=== PATIENT | male | born 1985 | race African-American/Black ===

== ENCOUNTER 2017-09-05 11:00 | Emergency (ER) | payer SELFPAY ==
[~2017-09-05] VITALS: Ht 182.9 cm; Wt 68.0 kg
[2017-09-05] MEDS ORDERED: IPRATRPIUM/ALBUTEROL 0.5/2.5MG 3 ML NEBU. NEB ONE (11:15)
[2017-09-05] MEDS ORDERED: ALBUTEROL SULFATE 2.5 MG/3 ML NEBU. NEB ONE (12:00)
[2017-09-05] MEDS ORDERED: predniSONE 10 MG TABLET PO ONE (12:00)
--- NOTE | 2017-09-05 12:25 | PHYS DOC ---
Past Medical History Past Medical History: Asthma, Bipolar Past Surgical History: No Surgical History Alcohol Use: None Drug Use: Marijuana Adult General Chief Complaint Chief Complaint: ASTHMA HPI HPI Patient is a 32 year old male who presents with cough, wheezing, shortness of breath. Patient with history of asthma, states he hasn't had using an inhaler for greater than a year presents with a few days of runny nose and cough, no fevers. No associated pain, he did not attempt any medications as he does not have any. No primary care physician. Review of Systems Review of Systems Constitutional: Denies fever or chills [] Eyes: Denies change in visual acuity, redness, or eye pain [] HENT: per history of present illness Respiratory: Per history of present illness Cardiovascular: Denies chest pain GI: Denies abdominal pain, nausea, vomiting, bloody stools or diarrhea [] : Denies dysuria or hematuria [] Musculoskeletal: Denies back pain or joint pain [] Integument: Denies rash or skin lesions [] Neurologic: Denies headache, focal weakness or sensory changes [] Current Medications Current Medications Current Medications Medications (Trade) Dose Ordered Sig/Wilian Start Time Stop Time Status Last Admin Dose Admin Albuterol Sulfate (Ventolin Neb Soln) 2.5 mg 1X ONCE 09/05/17 12:00 09/05/17 12:01 DC 09/05/17 12:09 2.5 MG Albuterol/ Ipratropium (Duoneb) 3 ml 1X ONCE 09/05/17 11:15 09/05/17 11:16 DC 09/05/17 12:10 3 ML Prednisone (Prednisone) 50 mg 1X ONCE 09/05/17 12:00 09/05/17 12:01 DC 09/05/17 12:16 50 MG Allergies Allergies Allergies Uncoded Allergies Type Severity Reaction Last Updated Verified anti-psychotics Allergy Unknown 01/20/16 Physical Exam Physical Exam Constitutional: Well developed, well nourished, audible wheezing HENT: Normocephalic, atraumatic, bilateral external ears normal, oropharynx moist, no oral exudates, nose normal. [] Eyes: PERRLA, EOMI, conjunctiva normal, no discharge. [] Neck: Normal range of motion, no tenderness, supple, no stridor. [] Cardiovascular:Heart rate regular rhythm, no murmur [] Lungs & Thorax: moderate air movement bilaterally, insp/exp wheeze, no crackles Abdomen: soft, no tenderness, no masses, no pulsatile masses. [] Skin: Warm, dry, no erythema, no rash. [] Back: No tenderness, no CVA tenderness. [] Extremities: No tenderness, no cyanosis, no clubbing, ROM intact, no edema. [] Neurologic: Alert and oriented X 3, normal motor function, normal sensory function, no focal deficits noted. [] Current Patient Data Vital Signs Vital Signs Date Time Temp Pulse Resp B/P (MAP) Pulse Ox O2 Delivery O2 Flow Rate FiO2 09/05/17 12:10 97 Room Air 09/05/17 11:14 98.3 91 24 144/81 (102) 98.3 EKG EKG [] Radiology/Procedures Radiology/Procedures [] Course & Med Decision Making Course & Med Decision Making Pertinent Labs and Imaging studies reviewed. (See chart for details) pt given po prednisone, duoneb and albuterol breathing treatment. Pt feeling much improved and comfortable going home, still has wheezing on exam but pt declined further breathing treatments. Pt dc'd with albuterol inhalers, nebs, prednisone for 4 more days, and neb machine. Referral sheet given to pt for f/u. Dragon Disclaimer Antony Disclaimer This electronic medical record was generated, in whole or in part, using a voice recognition dictation system. Departure Departure Impression: Primary Impression: Asthma Additional Impression: Upper respiratory infection Disposition: HOME, SELF-CARE Condition: IMPROVED Referrals: NO PCP (PCP) Scripts [Nebulizer Machine] No Conflict Check 1 UNIT Y for as needed for shortness of sin Prov: PERICO MAHMOOD MD 09/05/17 Albuterol Sulfate (ALBUTEROL SULFATE NEB SOLN) 2.5 Mg/3 Ml Vial.neb 1 VIAL NEB PRN Q4HRS Y for shortness of breath, #30 VIAL Prov: PERICO MAHMOOD MD 09/05/17 Prednisone (PREDNISONE) 50 Mg Tablet 1 TAB PO DAILY, #4 TAB starting tomorrow Prov: PERICO MAHMOOD MD 09/05/17 Albuterol Sulfate (PROAIR HFA INHALER) 8.5 Gm Hfa.aer.ad 1-2 PUFF INH PRN Q6HRS Y for SHORTNESS OF BREATH, #1 INHALER 0 Refills Prov: PERICO MAHMOOD MD 09/05/17 Problem Qualifiers PERICO MAHMOOD MD Sep 05, 2017 12:25
[2017-09-05] MEDS ORDERED: Nebulizer Machine (12:53)
[2017-09-05] MEDS ORDERED: ALBU2.5V5 NEB (12:53)
[2017-09-05] MEDS ORDERED: PROAIR HFA8.5 GM INH (12:53)
[2017-09-05] MEDS ORDERED: PRED50TA PO (12:53)
[2017-09-05 13:02] VITALS: BP 150/74
== END 2017-09-05 13:04 | disposition home or self-care (01) ==
LOC: ER 11:00
DX: J45.909 Unspecified asthma, uncomplicated (principal); J06.9 Acute upper respiratory infection, unspecified; F12.10 Cannabis abuse, uncomplicated; Z88.8 Allergy status to other drugs, medicaments and biological substances
CPT/HCPCS: 94250; 94640; 99284; J7512; J7613; J7620

== ENCOUNTER 2018-04-17 09:33 | Emergency (ER) | payer SELFPAY ==
[2018-04-17] MEDS: IPRATRPIUM/ALBUTEROL 0.5/2.5MG 3 ML NEBU. NEB ×2 (10:01→10:16)
[2018-04-17] MEDS: methylPREDNISolone SOD SUCC PF 125 MG/2 ML VIAL. IM (10:10)
== END 2018-04-17 10:43 | disposition home or self-care (01) ==
LOC: ER 09:33
DX: J18.9 Pneumonia, unspecified organism (principal)
CPT/HCPCS: 94640; 96372; 99284; J2930; J7620

== ENCOUNTER 2018-10-28 15:56 | Emergency (ER) | payer SELFPAY ==
[~2018-10-28] VITALS: Ht 182.9 cm; Wt 72.6 kg
[~2018-10-28 15:56] MED LIST: ALBU2.5V5 NEB; Nebulizer Machine; PRED20TA PO; PRED50TA PO; PROAIR HFA8.5 GM INH
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
[2018-10-28] MEDS ORDERED: DICL50TA4 PO (17:26)
[2018-10-28] MEDS ORDERED: LIDO700A39 TP (17:26)
[2018-10-28 17:40] VITALS: BP 138/77
== END 2018-10-28 17:50 | disposition home or self-care (01) ==
LOC: ER 15:56
DX: S22.31XA Fracture of one rib, right side, initial encounter for closed fracture (principal); J45.909 Unspecified asthma, uncomplicated; F31.9 Bipolar disorder, unspecified; Z88.8 Allergy status to other drugs, medicaments and biological substances; Y04.0XXA Assault by unarmed brawl or fight, initial encounter; Y93.89 Activity, other specified; Y92.89 Other specified places as the place of occurrence of the external cause; Y99.8 Other external cause status
CPT/HCPCS: 71101; 99283

== ENCOUNTER 2019-04-17 19:30 | Emergency (ER) | payer SELFPAY ==
[~2019-04-17] VITALS: Ht 185.4 cm; Wt 72.6 kg
[~2019-04-17 19:30] MED LIST changes: +ALBU2.5V8 INH; +DICL50TA4 PO; +LIDO700A39 TP; -PROAIR HFA8.5 GM INH
[2019-04-17] MEDS ORDERED: IV NORMAL SALINE 1000ML BAG 1,000 ML IV SCH (20:01)
[2019-04-17 20:13] LABS: BILIRUBIN,URINE SMALL (NEG); CLARITY,URINE CLEAR; COLOR,URINE YELLOW; NITRITE,URINE NEGATIVE (NEG); PROTEIN,URINE 100 mg/dL (NEG-TRACE)
[2019-04-17] MEDS ORDERED: PIPERACILLIN/TAZOBACTAM 4.5 GM in IV NORMAL SALINE 100ML 100 ML IV ONE (20:15)
[2019-04-17] MEDS ORDERED: TAMSULOSIN 0.4 MG CAP.ER.24H. PO ONE (20:15)
[2019-04-17] MEDS ORDERED: VANCOMYCIN PER PHARMACY MC ONE (20:15)
[2019-04-17] MEDS ORDERED: MORPHINE SULFATE 4 MG/ML VIAL. IV/SQ PRN (20:15)
[2019-04-17] MEDS ORDERED: VANCOMYCIN 1.75 GM in IV NORMAL SALINE 500ML BAG 500 ML IV ONE (20:15)
[2019-04-17] MEDS ORDERED: ACETAMINOPHEN 500 MG TABLET PO ONE (20:15)
[2019-04-17 20:20] LABS: BARBITURATES NEG (NEG); BENZODIAZEPINES NEG (NEG); CANNABINOIDS NEG (NEG); COCAINE NEG (NEG); METHADONE NEG (NEG); OPIATES NEG (NEG); PHENCYCLIDINE NEG (NEG)
[2019-04-17 20:21] LABS: BASO % 0 % (0-3); EOS % 0 % (0-3); HEMATOCRIT 42.2 % (39.0-53.0); HEMOGLOBIN 14.1 g/dL (13.0-17.5); LYMPH # 0.8 x10^3/uL (1.0-4.8); LYMPH % 7 % (24-48); MEAN CORPUSCULAR HEMOGLOBIN 29 pg (25-35); MEAN CORPUSCULAR HGB CONC 34 g/dL (31-37); MEAN CORPUSCULAR VOLUME 86 fL (79-100); MONO # 0.6 x10^3/uL (0.0-1.1); MONO % 5 % (0-9); NEUT # 10.2 x10^3uL (1.8-7.7); NEUT % 88 % (31-73); PLATELET COUNT 155 x10^3/uL (140-400); RED BLOOD COUNT 4.91 x10^6/uL (4.30-5.70); RED CELL DISTRIBUTION WIDTH 13.4 % (11.5-14.5); WHITE BLOOD COUNT 11.6 x10^3/uL (4.0-11.0)
[2019-04-17 20:23] LABS: AMPHETAMINE/METHAMPHETAMINE NEG (NEG); RBC,URINE >40 /HPF (0-2); SQUAMOUS EPITHELIAL CELL,UR FEW /LPF
[2019-04-17 20:24] LABS: BACTERIA,URINE 0 /HPF (0-FEW)
[2019-04-17 20:38] LABS: CALCIUM 9.5 mg/dL (8.5-10.1); CREATININE 1.2 mg/dL (0.7-1.3); GFR 84.9
[2019-04-17 20:44] LABS: ALBUMIN 4.1 g/dL (3.4-5.0); ALBUMIN/GLOBULIN RATIO 0.9 (1.0-1.7); TOTAL BILIRUBIN 0.4 mg/dL (0.2-1.0); TOTAL PROTEIN 8.5 g/dL (6.4-8.2)
[2019-04-17 20:51] LABS: % BANDS 1 % (0-9); % LYMPHS 6 % (24-48); % MONOS 8 % (0-10); % SEGS 85 % (35-66); PLT ESTIMATE ADEQUATE (ADEQUATE)
--- NOTE | 2019-04-17 21:40 | RAD ---
CT abdomen and pelvis without contrast dated 04/17/2019. No comparison available. CLINICAL INDICATION: Bilateral flank pain and fever. TECHNIQUE: Contiguous axial imaging the abdomen and pelvis performed without the administration of IV or oral contrast. One or more of the following individualized dose reduction techniques were utilized for this examination: 1. Automated exposure control 2. Adjustment of the mA and/or kV according to patient size 3. Use of iterative reconstruction technique. FINDINGS: Limited images of lung bases are clear. Heart size within normal limits. No pleural or pericardial effusion. Solid abdominal viscera not well evaluated in the absence of contrast material. No apparent attenuation abnormality of the liver or spleen. Gallbladder unremarkable. Pancreas, adrenal glands and kidneys are unremarkable. No stone or hydronephrosis. Unopacified GI tract normal in caliber and contour. No focal bowel wall thickening. The appendix is normal in caliber. No ascites or lymphadenopathy. Abdominal aorta normal in caliber. Images the pelvis show nondistended urinary bladder. There is diffuse bladder wall thickening. No free fluid or lymphadenopathy. Prostate gland normal in size. Bone windows show no acute findings. IMPRESSION: 1. No acute abnormality of abdomen or pelvis. No renal stone or hydronephrosis. 2. Mild diffuse wall thickening of the urinary bladder, nonspecific. Consider acute or chronic cystitis. 3. Normal appendix. Electronically signed by: Aleksandar Gee MD (04/17/2019 9:37 PM) [facility]
[2019-04-17] MEDS ORDERED: CIPR500T94 PO (23:20)
[2019-04-17] MEDS ORDERED: IBUP-1060 PO (23:21)
[2019-04-17] MEDS ORDERED: HYDR-3164 PO (23:21)
--- NOTE | 2019-04-17 23:21 | PHYS DOC ---
Past Medical History Past Medical History: Asthma, Bipolar, Depression Past Surgical History: No Surgical History Alcohol Use: None Drug Use: None Adult General Chief Complaint Chief Complaint: PAIN ON URINATION HPI HPI Patient is a 33 year old 33-year-old male patient with history of asthma, bipolar, who presents to the ED today complaining of urinary frequency, dysuria, and mild intermittent low back pain described as cramping that began this morning. Patient denies any fever but states he feels warm other normal. Denies any nausea vomiting. Denies any personal family history of kidney stones. Denies any hematuria. Review of Systems Review of Systems Constitutional: Denies fever or chills [] Eyes: Denies change in visual acuity, redness, or eye pain [] HENT: Denies nasal congestion or sore throat [] Respiratory: Denies cough or shortness of breath [] Cardiovascular: No additional information not addressed in HPI [] GI: Denies abdominal pain, nausea, vomiting, bloody stools or diarrhea [] : Reports dysuria, frequency, denies hematuria [] Musculoskeletal: Reports low back pain, Integument: Denies rash or skin lesions [] Neurologic: Denies headache, focal weakness or sensory changes [] All other systems were reviewed and found to be within normal limits, except as documented in this note. Current Medications Current Medications Current Medications Medications (Trade) Dose Ordered Sig/Wilian Start Time Stop Time Status Last Admin Dose Admin Acetaminophen (Tylenol) 1,000 mg 1X ONCE 04/17/19 20:15 04/17/19 20:16 DC 04/17/19 20:38 1,000 MG Azithromycin (Zithromax) 1,000 mg 1X ONCE 04/17/19 23:45 04/17/19 23:46 04/17/19 23:34 1,000 MG Morphine Sulfate (Morphine Sulfate) 4 mg PRN Q15MIN PRN 04/17/19 20:15 04/18/19 20:14 Piperacillin Sod/ Tazobactam Sod 4.5 gm/Sodium Chloride 100 ml @ 200 mls/hr 1X ONCE 04/17/19 20:15 04/17/19 20:44 DC 04/17/19 20:56 200 MLS/HR Sodium Chloride 1,000 ml @ 2,190 mls/hr Q28M 04/17/19 20:01 04/17/19 21:01 DC 04/17/19 20:38 2,190 MLS/HR Tamsulosin HCl (Flomax) 0.4 mg 1X ONCE 04/17/19 20:15 04/17/19 20:16 DC 04/17/19 20:38 0.4 MG Vancomycin HCl (Vanco Per Pharmacy) 1 each 1X ONCE 04/17/19 20:15 04/17/19 20:15 DC Vancomycin HCl 1.75 gm/Sodium Chloride 500 ml @ 250 mls/hr 1X ONCE 04/17/19 20:15 04/17/19 22:14 DC 04/17/19 20:55 250 MLS/HR Allergies Allergies Allergies Uncoded Allergies Type Severity Reaction Last Updated Verified anti-psychotics Allergy Unknown 01/20/16 Physical Exam Physical Exam Constitutional: Well developed, well nourished, no acute distress, non-toxic appearance. [] HENT: Normocephalic, atraumatic, bilateral external ears normal, oropharynx moist, no oral exudates, nose normal. [] Eyes: PERRLA, EOMI, conjunctiva normal, no discharge. [] Neck: Normal range of motion, no tenderness, supple, no stridor. [] Cardiovascular:Heart rate regular rhythm, no murmur [] Lungs & Thorax: Bilateral breath sounds clear to auscultation [] Abdomen: Bowel sounds normal, soft, no tenderness, no masses, no pulsatile masses. [] Skin: Warm, dry, no erythema, no rash. [] Back: No tenderness, mild bilateral CVA tenderness. [] Extremities: No tenderness, no cyanosis, no clubbing, ROM intact, no edema. [] Neurologic: Alert and oriented X 3, normal motor function, normal sensory function, no focal deficits noted. [] Psychologic: Affect normal, judgement normal, mood normal. [] Current Patient Data Vital Signs Vital Signs Date Time Temp Pulse Resp B/P (MAP) Pulse Ox O2 Delivery O2 Flow Rate FiO2 04/17/19 22:32 99.0 92 20 109/55 (73) 97 Room Air 99.0 Lab Values Laboratory Tests Test 04/17/19 20:00 04/17/19 20:12 04/17/19 20:28 Urine Collection Type Unknown Urine Color Yellow Urine Clarity Clear Urine pH 8.0 Urine Specific Harrison 1.025 Urine Protein 100 mg/dL (NEG-TRACE) Urine Glucose (UA) Negative mg/dL (NEG) Urine Ketones (Stick) 40 mg/dL (NEG) Urine Blood Large (NEG) Urine Nitrite Negative (NEG) Urine Bilirubin Small (NEG) Urine Urobilinogen Dipstick 1.0 mg/dL (0.2 mg/dL) Urine Leukocyte Esterase Small (NEG) Urine RBC >40 /HPF (0-2) Urine WBC 11-20 /HPF (0-4) Urine Squamous Epithelial Cells Few /LPF Urine Bacteria 0 /HPF (0-FEW) Urine Mucus Mod /LPF Urine Opiates Screen Neg (NEG) Urine Methadone Screen Neg (NEG) Urine Barbiturates Neg (NEG) Urine Phencyclidine Screen Neg (NEG) Urine Amphetamine/Methamphetamine Neg (NEG) Urine Benzodiazepines Screen Neg (NEG) Urine Cocaine Screen Neg (NEG) Urine Cannabinoids Screen Neg (NEG) Urine Ethyl Alcohol Neg (NEG) White Blood Count 11.6 x10^3/uL (4.0-11.0) H Red Blood Count 4.91 x10^6/uL (4.30-5.70) Hemoglobin 14.1 g/dL (13.0-17.5) Hematocrit 42.2 % (39.0-53.0) Mean Corpuscular Volume 86 fL (79-100) Mean Corpuscular Hemoglobin 29 pg (25-35) Mean Corpuscular Hemoglobin Concent 34 g/dL (31-37) Red Cell Distribution Width 13.4 % (11.5-14.5) Platelet Count 155 x10^3/uL (140-400) Neutrophils (%) (Auto) 88 % (31-73) H Lymphocytes (%) (Auto) 7 % (24-48) L Monocytes (%) (Auto) 5 % (0-9) Eosinophils (%) (Auto) 0 % (0-3) Basophils (%) (Auto) 0 % (0-3) Neutrophils # (Auto) 10.2 x10^3uL (1.8-7.7) H Lymphocytes # (Auto) 0.8 x10^3/uL (1.0-4.8) L Monocytes # (Auto) 0.6 x10^3/uL (0.0-1.1) Eosinophils # (Auto) 0.0 x10^3/uL (0.0-0.7) Basophils # (Auto) 0.0 x10^3/uL (0.0-0.2) Segmented Neutrophils % 85 % (35-66) H Band Neutrophils % 1 % (0-9) Lymphocytes % 6 % (24-48) L Monocytes % 8 % (0-10) Platelet Estimate Adequate (ADEQUATE) Sodium Level 138 mmol/L (136-145) Potassium Level 4.0 mmol/L (3.5-5.1) Chloride Level 100 mmol/L (98-107) Carbon Dioxide Level 27 mmol/L (21-32) Anion Gap 11 (6-14) Blood Urea Nitrogen 10 mg/dL (8-26) Creatinine 1.2 mg/dL (0.7-1.3) Estimated GFR (Cockcroft-Gault) 84.9 BUN/Creatinine Ratio 8 (6-20) Glucose Level 101 mg/dL (70-99) H Calcium Level 9.5 mg/dL (8.5-10.1) Total Bilirubin 0.4 mg/dL (0.2-1.0) Aspartate Amino Transferase (AST) 25 U/L (15-37) Alanine Aminotransferase (ALT) 15 U/L (16-63) L Alkaline Phosphatase 93 U/L (46-116) Total Protein 8.5 g/dL (6.4-8.2) H Albumin 4.1 g/dL (3.4-5.0) Albumin/Globulin Ratio 0.9 (1.0-1.7) L Lipase 50 U/L (73-393) L Ethyl Alcohol Level < 10 mg/dL (0-10) Lactic Acid Level 1.1 mmol/L (0.4-2.0) Laboratory Tests 04/17/19 20:12 Laboratory Tests 04/17/19 20:12 EKG EKG [] Radiology/Procedures Radiology/Procedures []PROCEDURE: CT ABDOMEN PELVIS WO CONTRAST CT abdomen and pelvis without contrast dated 04/17/2019. No comparison available. CLINICAL INDICATION: Bilateral flank pain and fever. TECHNIQUE: Contiguous axial imaging the abdomen and pelvis performed without the administration of IV or oral contrast. One or more of the following individualized dose reduction techniques were utilized for this examination: 1. Automated exposure control 2. Adjustment of the mA and/or kV according to patient size 3. Use of iterative reconstruction technique. FINDINGS: Limited images of lung bases are clear. Heart size within normal limits. No pleural or pericardial effusion. Solid abdominal viscera not well evaluated in the absence of contrast material. No apparent attenuation abnormality of the liver or spleen. Gallbladder unremarkable. Pancreas, adrenal glands and kidneys are unremarkable. No stone or hydronephrosis. Unopacified GI tract normal in caliber and contour. No focal bowel wall thickening. The appendix is normal in caliber. No ascites or lymphadenopathy. Abdominal aorta normal in caliber. Images the pelvis show nondistended urinary bladder. There is diffuse bladder wall thickening. No free fluid or lymphadenopathy. Prostate gland normal in size. Bone windows show no acute findings. IMPRESSION: 1. No acute abnormality of abdomen or pelvis. No renal stone or hydronephrosis. 2. Mild diffuse wall thickening of the urinary bladder, nonspecific. Consider acute or chronic cystitis. 3. Normal appendix. Electronically signed by: Aleksandar Gee MD (04/17/2019 9:37 PM) [facility] DICTATED and SIGNED BY: ALEKSANDAR GEE MD DATE: 04/17/192136 Course & Med Decision Making Course & Med Decision Making Pertinent Labs and Imaging studies reviewed. (See chart for details) This is a 33-year-old male patient presenting to the ED today complaining of urinary frequency, dysuria, low back pain. Symptoms began today. On arrival to the ED temperature 102.4, heart rate 120 respiration 18 on room air blood pressure 157/87. Stated on Sepsis protocal. CT of the abdomen and pelvic was noted for mild diffuse thickening of the urinary bladder nonspecific with consideration for acute or chronic cystitis. CBC with a history of 11.6 with a left shift. CMP with no acute findings. Urine analysis is noted for large amount of blood, small amount of leukocytes, no nitrites. Patient was given IV fluids per sepsis protocol, also started on antibiotics specifically Zosyn and vancomycin. He was offered admission to the hospital. He declined. He states he feels better and would like to manage his symptoms at home. Prescription for Cipro given. Instructed to follow-up with the PCP or the provided urologist in the course of this week. Instructed to return to the ED at any point symptoms worsen. Dragon Disclaimer Dragon Disclaimer This electronic medical record was generated, in whole or in part, using a voice recognition dictation system. Departure Departure Impression: Primary Impression: Acute cystitis Additional Impressions: Fever Tachycardia Disposition: 01 HOME, SELF-CARE Condition: STABLE Referrals: NO PCP (PCP) NAYANA HAWK MD follow up in 2 weeks Patient Instructions: Urinary Tract Infection Additional Instructions: You have a bladder infection please complete your antibiotics. Follow up with your doctor or the provided urologist in two weeks. Please push fluids. Scripts Ibuprofen (IBUPROFEN) 800 Mg Tablet 800 MG PO PRN Q6HRS PRN for INFLAMMATION, #20 TAB Prov: ANDERS SUERO [employer] DRILLER HELPER 04/17/19 Hydrocodone/Apap 5-325 (NORCO 5-325 TABLET) 1 Each Tablet 1 TAB PO Q6HRS, #20 TAB Prov: ANDERS SUERO [employer] DRILLER HELPER 04/17/19 Ciprofloxacin Hcl (CIPRO) 500 Mg Tablet 1 TAB PO BID, #20 TAB Prov: ANDERS SUERO [employer] DRILLER HELPER 04/17/19 Date and Time of Reassessment Date: April 17, 2019 Time: 21:00 Fluid Challenge Is the fluid challenge complet: No IBW Target Volume Used: Yes BMI > 30: No Vital Signs Vital Signs: Vital Signs Date Time Temp Pulse Resp B/P (MAP) Pulse Ox O2 Delivery O2 Flow Rate FiO2 04/17/19 22:32 99.0 92 20 109/55 (73) 97 Room Air 99.0 Temperature Source: Oral Respirations Respiratory Effort: Normal Respiratory Pattern: Normal Cardiovascular Pulse Rhythm: Regular Heart: Nml rate, reg. rhythm, Nml S1, S2, no murmurs Lung Sounds Breath Sounds: Clear Capillary Refil Capillary Refill: Rt Hand < 3 seconds Peripheral Pulse Pulse Location: Radial Pulse Strength: Normal (2+) Pulse Assessment Method: Monitor Integumentary Skin: Warm Skin Moisture: Dry Skin Turgor: Normal Skin Color: warm Fingernail Color: WNL Problem Qualifiers Primary Impression: Acute cystitis Hematuria presence: without hematuria Qualified Codes: N30.00 - Acute cystitis without hematuria Additional Impressions: Fever Fever type: unspecified Qualified Codes: R50.9 - Fever, unspecified ANDERS SUERO ASTRID April 17, 2019 23:21
[2019-04-17 23:27] VITALS: BP 103/61
[2019-04-17] MEDS ORDERED: AZITHROMYCIN 250 MG TABLET. PO ONE (23:45)
== END 2019-04-17 23:35 | disposition home or self-care (01) ==
LOC: ER 19:30
DX: N30.00 Acute cystitis without hematuria (principal); R50.9 Fever, unspecified; J45.909 Unspecified asthma, uncomplicated; F31.9 Bipolar disorder, unspecified
CPT/HCPCS: 36415; 74176; 80053; 80307; 81001; 83605; 83690; 85007; 85025; 87040; 87086; 87491; 87591; 96365; 96366; 99285; G0480; J2543; J3370; J7030; J7040; Q0144

== ENCOUNTER 2019-11-27 21:41 | Emergency (ER) | payer SELFPAY ==
[~2019-11-27] VITALS: Ht 182.9 cm; Wt 70.3 kg
[~2019-11-27 21:41] MED LIST changes: +CIPR500T94 PO; +HYDR-3164 PO; +IBUP-1060 PO; +LIDO700A21 TP; -LIDO700A39 TP
[2019-11-27 22:12] VITALS: BP 168/89
--- NOTE | 2019-11-27 22:12 | PHYS DOC ---
Past Medical History Past Medical History: Asthma, Bipolar, Depression Past Surgical History: No Surgical History Alcohol Use: None Drug Use: None Adult General Chief Complaint Chief Complaint: PENIS PROBLEM HPI HPI 34-year-old male with underlying history of bipolar disorder presents to the emergency department with feelings of something in his penis, testicles. He states he feels that there is bug or something within his groin area that he can feel move. He denies any dysuria, no discharge. He denies any pain. All other ROS negative unless documented in HPI Review of Systems Review of Systems See Above Allergies Allergies Allergies Uncoded Allergies Type Severity Reaction Last Updated Verified anti-psychotics Allergy Unknown 01/20/16 Physical Exam Physical Exam See Above Constitutional: Well developed, well nourished, no acute distress, non-toxic appearance. [] : normal appearing male anatomy, no evidence of dc or redness on exam, no findings of FB Skin: Warm, dry, no erythema, no rash. [] Extremities: No tenderness, no cyanosis, no clubbing, ROM intact, no edema. [] Neurologic: Alert and oriented X 3, no focal deficits noted. [] Psychologic: Affect normal, judgement normal, mood normal. [] EKG EKG [] Radiology/Procedures Radiology/Procedures [] Course & Med Decision Making Course & Med Decision Making Pertinent Labs and Imaging studies reviewed. (See chart for details) [] 34-year-old male with underlying history of bipolar disorder presents to the emergency department with feelings of something in his penis, testicles. He states he feels that there is bug or something within his groin area that he can feel move. He denies any dysuria, no discharge. He denies any pain. exam unremarkable Recommend dc home Follow up with PCP as needed Return precautions provided Dragon Disclaimer Dragon Disclaimer This electronic medical record was generated, in whole or in part, using a voice recognition dictation system. Departure Departure Impression: Primary Impression: Groin discomfort Disposition: 01 HOME, SELF-CARE Condition: STABLE Referrals: NO PCP (PCP) Patient Instructions: Pelvic Pain, Male Additional Instructions: Recommend follow up with PCP 3 - 5 days Return to the ER with worsening symptoms, intractable pain, fever, altered mental status Tylenol/Motrin as needed for pain No evidence of foreign body appreciated on exam, no infection appreciated Problem Qualifiers Primary Impression: Groin discomfort Laterality: unspecified laterality Qualified Codes: R10.30 - Lower abdominal pain, unspecified RINKU GAINES MD Nov 27, 2019 22:12
== END 2019-11-27 22:30 | disposition home or self-care (01) ==
LOC: ER 21:41
DX: R10.30 Lower abdominal pain, unspecified (principal); N48.89 Other specified disorders of penis; N50.89 Other specified disorders of the male genital organs; J45.909 Unspecified asthma, uncomplicated; F32.9 Major depressive disorder, single episode, unspecified
CPT/HCPCS: 99281